=== PATIENT | male | born 1970 | race Caucasian/White ===

== ENCOUNTER 2018-10-13 10:55 | Emergency (ER) | payer OTHER ==
[~2018-10-13] VITALS: Ht 172.7 cm; Wt 73.9 kg
[~2018-10-13 10:55] MED LIST: LEVO100T5 PO; METR70GE2 TP
--- NOTE | 2018-10-13 11:50 | NUR ---
PT AMBULATED BACK TO ROOM WITHOUT DIFFICULTY WITH FAMILY. ERP AT BS.
--- NOTE | 2018-10-13 11:54 | NUR ---
Pt to room 30 from lobby
[2018-10-13 11:55] LABS: MICROSCOPIC AUTO
[2018-10-13 11:59] LABS: CULTURE INDICATED? YES
[2018-10-13] MEDS ORDERED: SODIUM CHLORIDE FLUSH 10ML SYR IVF ONE (12:00)
--- NOTE | 2018-10-13 12:14 | NUR ---
CT WAITING ON LAB RESULTS TO DO EXAM
[2018-10-13 12:22] LABS: BASOPHILS # (AUTO) 0.05 x10^3/uL (0-0.1); BASOPHILS % (AUTO) 1 % (0-1); EOSINOPHILS # (AUTO) 0.16 x10^3/uL (0-0.4); EOSINOPHILS % (AUTO) 2 % (1-7); LYMPHOCYTES # (AUTO) 1.86 x10^3/uL (1-3.4); LYMPHOCYTES % (AUTO) 27 % (22-44); MD NO; MEAN CORPUSCULAR HEMOGLOBIN 31.8 pg (27.5-34.5); MEAN CORPUSCULAR HGB CONC 33.8 g/dL (33.2-36.2); MEAN CORPUSCULAR VOLUME 94.1 fL (81-97); MEAN PLATELET VOLUME 7.4 fL (7.4-10.4); MONOCYTES # (AUTO) 0.71 x10^3/uL (0.2-0.8); MONOCYTES % (AUTO) 10 % (2-9); NEUTROPHILS # (AUTO) 4.19 x10^3/uL (1.8-6.8); NEUTROPHILS % (AUTO) 60 % (42-75); PLATELET COUNT 311 x10^3/uL (130-400); RED BLOOD COUNT 5.35 x10^6/uL (4.38-5.82); RED CELL DISTRIBUTION WIDTH 13.1 % (9.4-14.8)
--- NOTE | 2018-10-13 12:32 | NUR ---
RV'WD POC WITH PT. AWAITING CT.
[2018-10-13 12:33] LABS: ALBUMIN 4.4 g/dL (3.4-5.0); ANION GAP 7 mmol/L (5-15); CALCIUM 8.9 mg/dL (8.5-10.1); CHLORIDE 108 mmol/L (98-107); CREATININE 1.23 mg/dL (0.7-1.3)
[2018-10-13 12:39] LABS: ALANINE AMINOTRANSFERASE 82 U/L (12-78); ALKALINE PHOSPHATASE 63 U/L (45-117); BILIRUBIN,TOTAL 0.6 mg/dL (0.2-1.0); TOTAL PROTEIN 7.1 g/dL (6.4-8.2)
--- NOTE | 2018-10-13 13:03 | NUR ---
PT TO CT VIA [facility].
[2018-10-13] MEDS ORDERED: OMNIPAQUE 350 MG/ML, 100ML BOTTLE ONE (13:15)
[2018-10-13 14:57] VITALS: BP 136/83
--- NOTE | 2018-10-13 15:17 | NUR ---
ERP WAS IN FOR RE-EVAL.
--- NOTE | 2018-10-13 15:45 | NUR ---
D/C INSTRUCTIONS & F/U APPT RV'WD WITH PT, HE VERBALIZES UNDERSTANDING. [employer] HANDOUT ON DIVERTICULOSIS PROVIDED TO PT. PT AMBULATED OUT OF ED WITH FAMILY WITHOUT DIFFICULTY.
== END 2018-10-13 15:48 | disposition home or self-care (01) ==
LOC: ED 12:15
DX: K57.30 Diverticulosis of large intestine without perforation or abscess without bleeding (principal)
CPT/HCPCS: 36415; 74177; 80053; 81001; 83690; 85025; 87086; 99284; Q9967